=== PATIENT | male | born 1975 | race Caucasian/White ===

== ENCOUNTER 2019-03-26 13:15 | Emergency (ER) | payer OTHER ==
[~2019-03-26] VITALS: Ht 182.9 cm; Wt 93.4 kg
[2019-03-26] MEDS ORDERED: NEURONTIN800 MG PO (13:24)
[2019-03-26] MEDS ORDERED: PLAQUENIL200 MG PO (13:24)
[2019-03-26] MEDS ORDERED: ABILIFY2 MG PO (13:25)
[2019-03-26] MEDS ORDERED: ZOLOFT100 MG PO (13:25)
[2019-03-26] MEDS ORDERED: OXYCODONE HCL5 MG PO (13:26)
[2019-03-26] MEDS ORDERED: KLONOPIN0.5 MG PO (13:26)
[2019-03-26] MEDS ORDERED: VICTOZA 2-0.6 MG/0.1 SUB-Q (13:27)
[2019-03-26] MEDS ORDERED: NOVOLOG FL100 UNIT/1 SUB-Q (13:27)
[2019-03-26] MEDS ORDERED: KAPSPARGO SPRI200 MG PO (13:43)
[2019-03-26] MEDS ORDERED: METOPROLOL SUC200 MG PO (13:44)
[2019-03-26] MEDS ORDERED: MEDROL4 M1 PO (13:55)
--- OUTSIDE RECORDS SUMMARY | 2019-03-26 14:30 | XMS ---
PreManage Notification: HALEY SHEPPARD Security Corrective Therapy Aide Events No recent Security Events currently on file CRITERIA MET - [facility] CARE PROVIDERS EMELI HUMPHREY Primary Care Current PHONE: Unknown Joie has no Care Guidelines for this patient. EJade VISIT COUNT (12 MO.) [facility] [address] [facility] [address] [facility] TOTAL 4 NOTE: Visits indicate total known visits. ED/UCC VISIT TRACKING (12 MO.) 03/26/2019 13:17 YIN Bruner TYPE: Emergency COMPLAINT: - PRESSURE IN LEFT EYE 01/24/2019 16:47 [facility] DIAGNOSES: 0. R KNEE SWELLING SP SURGERY 12/25/2018 19:47 [facility] DIAGNOSES: 0. POST OP SENT BY 11/28/2018 12:36 [facility] DIAGNOSES: 0. SURGERY SIGHT HAS BLISTERS AND PRESSURE INPATIENT VISIT TRACKING (12 MO.) 01/19/2019 21:36 [facility] DIAGNOSES: 0. SEVERE SEPSIS WITHOUT SEPTIC SHOCK, PROBABLE RIGHT [email or web address]
== END 2019-03-26 14:21 | disposition home or self-care (01) ==
LOC: ED 13:15
DX: H57.12 Ocular pain, left eye (principal); M32.9 Systemic lupus erythematosus, unspecified; E11.9 Type 2 diabetes mellitus without complications; F17.200 Nicotine dependence, unspecified, uncomplicated; Z88.8 Allergy status to other drugs, medicaments and biological substances; Z79.899 Other long term (current) drug therapy; Z79.4 Long term (current) use of insulin; Z79.891 Long term (current) use of opiate analgesic
CPT/HCPCS: 99283

== ENCOUNTER 2019-04-07 13:35 | Emergency (ER) | payer OTHER ==
[~2019-04-07] VITALS: Ht 182.9 cm; Wt 93.4 kg
[~2019-04-07 13:35] MED LIST: ABILIFY2 MG PO; KAPSPARGO SPRI200 MG PO; KLONOPIN0.5 MG PO; MEDROL4 M1 PO; METOPROLOL SUC200 MG PO; NEURONTIN800 MG PO; NOVOLOG FL100 UNIT/1 SUB-Q; OXYCODONE HCL5 MG PO; PLAQUENIL200 MG PO; VICTOZA 2-0.6 MG/0.1 SUB-Q; ZOLOFT100 MG PO
--- OUTSIDE RECORDS SUMMARY | 2019-04-07 13:40 | XMS ---
PreManage Notification: HALEY SHEPPARD Security Gem Stone Cutter Events No recent Security Events currently on file CRITERIA MET - [facility] - 2 Visits in 30 Days CARE PROVIDERS EMELI HUMPHREY Primary Care Current PHONE: Unknown Joie has no Care Guidelines for this patient. E.Jonny VISIT COUNT (12 MO.) [facility] Omayra D[address]az[address] TOTAL 5 NOTE: Visits indicate total known visits. 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 O[facility] Pollack TYPE: Emergency DIAGNOSES: 0. R KNEE SWELLING SP SURGERY 12/25/2018 19:47 [facility] DIAGNOSES: 0. POST OP SENT BY 11/28/2018 12:36 [facility] DIAGNOSES: 0. SURGERY SIGHT HAS BLISTERS AND PRESSURE INPATIENT VISIT TRACKING (12 MO.) 01/19/2019 21:36 [facility] DIAGNOSES: 0. SEVERE SEPSIS WITHOUT SEPTIC SHOCK, PROBABLE RIGHT [id number]
[2019-04-07] MEDS ORDERED: NICORETTE2 M1 BUCCAL (16:21)
== END 2019-04-07 16:31 | disposition home or self-care (01) ==
LOC: ED 13:35
DX: S83.91XA Sprain of unspecified site of right knee, initial encounter (principal); X50.9XXA Other and unspecified overexertion or strenuous movements or postures, initial encounter; E11.9 Type 2 diabetes mellitus without complications; F17.200 Nicotine dependence, unspecified, uncomplicated; Z88.8 Allergy status to other drugs, medicaments and biological substances; Z79.899 Other long term (current) drug therapy; Z79.4 Long term (current) use of insulin
CPT/HCPCS: 73560; 99283-25; 99406; A9270

== ENCOUNTER 2019-08-01 10:37 | Emergency (ER) | payer OTHER ==
[~2019-08-01] VITALS: Ht 182.9 cm; Wt 95.2 kg
[~2019-08-01 10:37] MED LIST changes: +NICORETTE2 M1 BUCCAL
--- OUTSIDE RECORDS SUMMARY | 2019-08-01 10:40 | XMS ---
PreManage Notification: HALEY SHEPPARD Security C 40A Crew Chief Events No recent Security Events currently on file CRITERIA MET - [facility] CARE PROVIDERS EMELI HUMPHREY Primary Care Current PHONE: Unknown Joie has no Care Guidelines for this patient. EJade VISIT COUNT ([address] [facility] [address] TOTAL 6 NOTE: Visits indicate total known visits. ED/UCC VISIT TRACKING (12 MO.) 08/01/2019 10:38 [facility] [place] TYPE: Emergency COMPLAINT: - THUMB INJURY 04/07/2019 13:37 [facility] [place] TYPE: Emergency COMPLAINT: - KNEE PAIN, INJ DIAGNOSES: - Other termite control technician (current) drug therapy - Nicotine dependence, unspecified, uncomplicated - Type 2 diabetes mellitus without complications - Allergy status to other drugs, medicaments and biological sub - Sprain of unspecified site of right knee, initial encounter - care home (current) use of insulin - Other and unspecified overexertion or strenuous movements or 03/26/2019 13:17 [facility] [place] TYPE: Emergency COMPLAINT: - PRESSURE IN LEFT EYE DIAGNOSES: - terminal system operator (current) use of opiate analgesic - Systemic lupus erythematosus, unspecified - Other termite control technician (current) drug therapy - Type 2 diabetes mellitus without complications - Ocular pain, left eye - Allergy status to other drugs, medicaments and biological sub - care home (current) use of insulin - Nicotine dependence, unspecified, uncomplicated 01/24/2019 16:47 [facility] TYPE: Emergency DIAGNOSES: 0. R KNEE SWELLING SP SURGERY 12/25/2018 19:47 [facility] DIAGNOSES: 0. POST OP SENT BY 11/28/2018 12:36 [facility] DIAGNOSES: 0. SURGERY SIGHT HAS BLISTERS AND PRESSURE INPATIENT VISIT TRACKING (12 MO.) 01/19/2019 21:36 [facility] OR MimiMargaret TYPE: [facility] DIAGNOSES: 0. SEVERE SEPSIS WITHOUT SEPTIC SHOCK, PROBABLE RIGHT [id number]
[2019-08-01] MEDS ORDERED: NORCO 7.5-3251 EACH PO (12:15)
[2019-08-01] MEDS ORDERED: KEFLEX500 MG PO (12:15)
== END 2019-08-01 12:25 | disposition home or self-care (01) ==
LOC: ED 10:37
DX: S61.132A Puncture wound without foreign body of left thumb with damage to nail, initial encounter (principal); E11.9 Type 2 diabetes mellitus without complications; F17.200 Nicotine dependence, unspecified, uncomplicated; Z79.899 Other long term (current) drug therapy; X58.XXXA Exposure to other specified factors, initial encounter
CPT/HCPCS: 73140; 99283-25; A9270

== ENCOUNTER 2019-09-23 09:53 | Emergency (ER) | payer OTHER ==
[~2019-09-23] VITALS: Ht 182.9 cm; Wt 102.3 kg
--- OUTSIDE RECORDS SUMMARY | ~2019-09-23 | XMS | Clinical Summary ---
Demographics + + + | Address | [address] | | | [place] [address] | + + + | Home Phone | | + + + | Preferred Language | Unknown | + + + | Marital Status | Unknown | + + + | Voodoo Affiliation | Unknown | + + + | Race | Unknown | + + + | Ethnic Group | Unknown | + + + Author + + + | Author | [facility] | | | and [place] | + + + | Organization | [facility] | | | and [place] | + + + | Address | Unknown | + + + | Phone | Unavailable | + + + Care Team Providers + +------+ + | Care Ambulance Driver Name | Role | Phone | + +------+ + | Jesica Wesley PA-C PCP | | + +------+ + Allergies No Known Allergies Medications + + + +---------+------+------+-------+ | Medication | Sig | Dispensed | Refills | Star | End | Statu | | | | | | t | Date | s | | | | | | Date | | | + + + +---------+------+------+-------+ | gabapentin | Take 800 mg by mouth | | 0 | | | Activ | | (NEURONTIN) 800 MG | 3 times daily. | | | | | e | | tablet | | | | | | | + + + +---------+------+------+-------+ | liraglutide | Inject 1.2 mg under | | 0 | | | Activ | | (VICTOZA) 18 mg/3 mL | the skin Daily. | | | | | e | | injection | | | | | | | + + + +---------+------+------+-------+ | insulin aspart | Inject under the | | 0 | | | Activ | | (NOVOLOG FLEXPEN) | skin 3 times daily | | | | | e | | 100 units/mL | (before meals). | | | | | | | injection pen | | | | | | | + + + +---------+------+------+-------+ | insulin glargine | Inject under the | | 0 | | | Activ | | (BASAGLAR KWIKPEN) | skin nightly. | | | | | e | | 100 units/mL | | | | | | | | injection (pen) | | | | | | | + + + +---------+------+------+-------+ | metoprolol | Take 200 mg by mouth | | 0 | | | Activ | | succinate | Daily. | | | | | e | | (TOPROL-XL) 200 mg | | | | | | | | ER tablet | | | | | | | + + + +---------+------+------+-------+ | sertraline | Take 100 mg by mouth | | 0 | | | Activ | | (ZOLOFT) 100 mg | 2 times daily. | | | | | e | | tablet | | | | | | | + + + +---------+------+------+-------+ | ALPRAZolam (XANAX) | Take 1 mg by mouth 2 | | 0 | | | Activ | | 1 MG tablet | times daily. | | | | | e | + + + +---------+------+------+-------+ | doxepin (SINEQUAN) | Take 150 mg by mouth | | 0 | | | Activ | | 150 MG capsule | nightly. | | | | | e | + + + +---------+------+------+-------+ | ARIPiprazole | Take 2 mg by mouth | | 0 | | | Activ | | (ABILIFY) 2 mg | Daily. | | | | | e | | tablet | | | | | | | + + + +---------+------+------+-------+ Active Problems Not on file Encounters +--------+ + + + + | Date | Type | Specialty | Care Team | Description | +--------+ + + + + | 08/30/ | Orders Only | Nephrology | Marquez, | Chronic kidney | | 2019 | | | [facility] [place] | disease, stage III | | | | | | (moderate) (HCC) | | | | | | (Primary Dx) | +--------+ + + + + | 08/16/ | Abstract | Nephrology | Larry, | | | 2019 | | | MD Darren | | +--------+ + + + + | 08/11/ | Abstract | Nephrology | Larry, | | | 2019 | | | MD Darren | | +--------+ + + + + | 08/10/ | Abstract | Nephrology | Marquez, | | | 2020 | | | [place] | | +--------+ + + + + from Last 3 Months Family History + + +------+ + | Medical History | Relation | Name | Comments | + + +------+ + | Diabetes | Father | | | + + +------+ + | Schizophrenia | Sister | | | + + +------+ + | Ulcerative colitis | Sister | | | + + +------+ + + +------+ + + | Relation | Name | Status | Comments | + +------+ + + | Father | | | | + +------+ + + | Maternal Grandfather | | | | + +------+ + + | Maternal Grandmother | | Alive | | + +------+ + + | Mother | | Alive | | + +------+ + + | Paternal Grandfather | | | | + +------+ + + | Paternal Grandmother | | Alive | | + +------+ + + | Sister | | Alive | | + +------+ + + Social History + +-------+ +--------+------+ | Tobacco Use | Types | Packs/Day | Years | Date | | | | | Used | | + +-------+ +--------+------+ | Never Assessed | | | | | + +-------+ +--------+------+ + + +---------+ + | Alcohol Use | Drinks/Week | oz/Week | Comments | + + +---------+ + | Not Currently | | | | + + +---------+ + + + + | Sex Assigned at | Date Recorded | | | | + + + | Not on file | | + + + + + + + | Job Start Date | Occupation | Industry | + + + + | Not on file | Not on file | Not on file | + + + + + + + + | Travel History | Travel Start | Travel End | + + + + + + | No recent travel history available. | + + Last Filed Vital Signs Not on file Plan of Treatment +--------+---------+ + + + | Date | Type | Specialty | Care Team | Description | +--------+---------+ + + + | 12/04/ | Office | Nephrology | Marquez, | | | 2020 | Visit | | [facility] [place] [address] | | | | | | [address] [facility] | | | | | | [address] | | | | | | [address] | | | | | | | | +--------+---------+ + + + + + + + + | Health Maintenance | Due Date | Last Done | Comments | + + + + + | Vaccine: | | | | | Dtap/Tdap/Td (1 - | 6 | | | | Tdap) | | | | + + + + + | Vaccine: Influenza | | | | | (Season Ended) | 0 | | | + + + + + Procedures + +--------+ + + + | Procedure Name | Priori | Date/Time | Associated Diagnosis | Comments | | | ty | | | | + +--------+ + + + | HEMOGLOBIN A1C | Routin | 08/02/2019 | | Results for this | | | e | | | procedure are in the | | | | | | results section. | + +--------+ + + + | EXTERNAL LAB: BUN | Routin | 08/02/2019 | | Results for this | | | e | | | procedure are in the | | | | | | results section. | + +--------+ + + + | EXTERNAL LAB: | Routin | 08/02/2019 | | Results for this | | GLUCOSE | e | | | procedure are in the | | | | | | results section. | + +--------+ + + + | EXTERNAL LAB: ALT | Routin | 08/02/2019 | | Results for this | | | e | | | procedure are in the | | | | | | results section. | + +--------+ + + + | EXTERNAL LAB: AST | Routin | 08/02/2019 | | Results for this | | | e | | | procedure are in the | | | | | | results section. | + +--------+ + + + | EXTERNAL LAB: | Routin | 08/02/2019 | | Results for this | | ALKALINE PHOSPHATASE | e | | | procedure are in the | | | | | | results section. | + +--------+ + + + | EXTERNAL LAB: | Routin | 08/02/2019 | | Results for this | | BILIRUBIN, TOTAL | e | | | procedure are in the | | | | | | results section. | + +--------+ + + + | EXTERNAL LAB: | Routin | 08/02/2019 | | Results for this | | ALBUMIN | e | | | procedure are in the | | | | | | results section. | + +--------+ + + + | EXTERNAL LAB: | Routin | 08/02/2019 | | Results for this | | PROTEIN, TOTAL | e | | | procedure are in the | | | | | | results section. | + +--------+ + + + | EXTERNAL LAB: | Routin | 08/02/2019 | | Results for this | | CALCIUM | e | | | procedure are in the | | | | | | results section. | + +--------+ + + + | EXTERNAL LAB: CARBON | Routin | 08/02/2019 | | Results for this | | DIOXIDE | e | | | procedure are in the | | | | | | results section. | + +--------+ + + + | EXTERNAL LAB: | Routin | 08/02/2019 | | Results for this | | CHLORIDE | e | | | procedure are in the | | | | | | results section. | + +--------+ + + + | EXTERNAL LAB: | Routin | 08/02/2019 | | Results for this | | POTASSIUM | e | | | procedure are in the | | | | | | results section. | + +--------+ + + + | EXTERNAL LAB: SODIUM | Routin | 08/02/2019 | | Results for this | | | e | | | procedure are in the | | | | | | results section. | + +--------+ + + + | EXTERNAL LAB: | Routin | 08/02/2019 | | Results for this | | URINALYSIS | e | | | procedure are in the | | | | | | results section. | + +--------+ + + + | EXTERNAL LAB: CBC | Routin | 08/02/2019 | | Results for this | | | e | | | procedure are in the | | | | | | results section. | + +--------+ + + + | EXTERNAL LAB: EGFR | Routin | 08/02/2019 | | Results for this | | | e | | | procedure are in the | | | | | | results section. | + +--------+ + + + | EXTERNAL LAB: | Routin | 08/02/2019 | | Results for this | | CREATININE | e | | | procedure are in the | | | | | | results section. | + +--------+ + + + from Last 3 Months Results External Lab: BUN (08/02/2019) + +-------+ + + + | Component | Value | Ref Range | Performed | Pathologist | | | | | At | Signature | + +-------+ + + + | BUN, | 16 | | EXTERNAL | | | External | | | LAB | | + +-------+ + + + + +---------+ + + | Performing | Address | City/State/Zipcode | Phone Number | | Organization | | | | + +---------+ + + | EXTERNAL LAB | | | | + +---------+ + + External Lab: Glucose (08/02/2019) + +-------+ + + + | Component | Value | Ref Range | Performed | Pathologist | | | | | At | Signature | + +-------+ + + + | Glucose, | 344 | | EXTERNAL | | | External | | | LAB | | + +-------+ + + + + +---------+ + + | Performing | Address | City/State/Zipcode | Phone Number | | Organization | | | | + +---------+ + + | EXTERNAL LAB | | | | + +---------+ + + External Lab: ALT (08/02/2019) + +-------+ + + + | Component | Value | Ref Range | Performed | Pathologist | | | | | At | Signature | + +-------+ + + + | ALT, | 17 | | EXTERNAL | | | External | | | LAB | | + +-------+ + + + + +---------+ + + | Performing | Address | City/State/Zipcode | Phone Number | | Organization | | | | + +---------+ + + | EXTERNAL LAB | | | | + +---------+ + + External Lab: AST (08/02/2019) + +-------+ + + + | Component | Value | Ref Range | Performed | Pathologist | | | | | At | Signature | + +-------+ + + + | AST, | 19 | | EXTERNAL | | | External | | | LAB | | + +-------+ + + + + +---------+ + + | Performing | Address | City/State/Zipcode | Phone Number | | Organization | | | | + +---------+ + + | EXTERNAL LAB | | | | + +---------+ + + External Lab: Alkaline Phosphatase (08/02/2019) + +-------+ + + + | Component | Value | Ref Range | Performed | Pathologist | | | | | At | Signature | + +-------+ + + + | ALP, | 78 | | EXTERNAL | | | External | | | LAB | | + +-------+ + + + + +---------+ + + | Performing | Address | City/State/Zipcode | Phone Number | | Organization | | | | + +---------+ + + | EXTERNAL LAB | | | | + +---------+ + + External Lab: Bilirubin, Total (08/02/2019) + +-------+ + + + | Component | Value | Ref Range | Performed | Pathologist | | | | | At | Signature | + +-------+ + + + | Bilirubin, | 1.2 | | EXTERNAL | | | Total, | | | LAB | | | External | | | | | + +-------+ + + + + +---------+ + + | Performing | Address | City/State/Zipcode | Phone Number | | Organization | | | | + +---------+ + + | EXTERNAL LAB | | | | + +---------+ + + External Lab: Albumin (08/02/2019) + +-------+ + + + | Component | Value | Ref Range | Performed | Pathologist | | | | | At | Signature | + +-------+ + + + | Albumin, | 4.5. | | EXTERNAL | | | External | | | LAB | | + +-------+ + + + + +---------+ + + | Performing | Address | City/State/Zipcode | Phone Number | | Organization | | | | + +---------+ + + | EXTERNAL LAB | | | | + +---------+ + + External Lab: Protein, Total (08/02/2019) + +-------+ + + + | Component | Value | Ref Range | Performed | Pathologist | | | | | At | Signature | + +-------+ + + + | Protein, | 7.2 | | EXTERNAL | | | Total, | | | LAB | | | External | | | | | + +-------+ + + + + +---------+ + + | Performing | Address | City/State/Zipcode | Phone Number | | Organization | | | | + +---------+ + + | EXTERNAL LAB | | | | + +---------+ + + External Lab: Calcium (08/02/2019) + +-------+ + + + | Component | Value | Ref Range | Performed | Pathologist | | | | | At | Signature | + +-------+ + + + | Calcium, | 9.6 | | EXTERNAL | | | External | | | LAB | | + +-------+ + + + + +---------+ + + | Performing | Address | City/State/Zipcode | Phone Number | | Organization | | | | + +---------+ + + | EXTERNAL LAB | | | | + +---------+ + + External Lab: Carbon Dioxide (08/02/2019) + +-------+ + + + | Component | Value | Ref Range | Performed | Pathologist | | | | | At | Signature | + +-------+ + + + | Carbon | 24 | | EXTERNAL | | | Dioxide, | | | LAB | | | External | | | | | + +-------+ + + + + +---------+ + + | Performing | Address | City/State/Zipcode | Phone Number | | Organization | | | | + +---------+ + + | EXTERNAL LAB | | | | + +---------+ + + External Lab: Chloride (08/02/2019) + +-------+ + + + | Component | Value | Ref Range | Performed | Pathologist | | | | | At | Signature | + +-------+ + + + | Chloride, | 101 | | EXTERNAL | | | External | | | LAB | | + +-------+ + + + + +---------+ + + | Performing | Address | City/State/Zipcode | Phone Number | | Organization | | | | + +---------+ + + | EXTERNAL LAB | | | | + +---------+ + + External Lab: Potassium (08/02/2019) + +-------+ + + + | Component | Value | Ref Range | Performed | Pathologist | | | | | At | Signature | + +-------+ + + + | Potassium, | 4.5 | | EXTERNAL | | | External | | | LAB | | + +-------+ + + + + +---------+ + + | Performing | Address | City/State/Zipcode | Phone Number | | Organization | | | | + +---------+ + + | EXTERNAL LAB | | | | + +---------+ + + External Lab: Sodium (08/02/2019) + +-------+ + + + | Component | Value | Ref Range | Performed | Pathologist | | | | | At | Signature | + +-------+ + + + | Sodium, | 137 | | EXTERNAL | | | External | | | LAB | | + +-------+ + + + + +---------+ + + | Performing | Address | City/State/Zipcode | Phone Number | | Organization | | | | + +---------+ + + | EXTERNAL LAB | | | | + +---------+ + + External Lab: Urinalysis (08/02/2019) + + + + + + | Component | Value | Ref Range | Performed | Pathologist | | | | | At | Signature | + + + + + + | UA Blood, | negative | | EXTERNAL | | | External | | | LAB | | + + + + + + | UA Glucose, | large | | EXTERNAL | | | External | | | LAB | | + + + + + + | UA Ketones, | negative | | EXTERNAL | | | External | | | LAB | | + + + + + + | UA Ph, | 7 | | EXTERNAL | | | External | | | LAB | | + + + + + + | UA | negative | | EXTERNAL | | | Proteins, | | | LAB | | | External | | | | | + + + + + + | UA RBC, | 2 | | EXTERNAL | | | External | | | LAB | | + + + + + + | UA Specific | 1.027 | | EXTERNAL | | | [place], | | | LAB | | | External | | | | | + + + + + + | UA | negaitve | | EXTERNAL | | | Leukocyte | | | LAB | | | Esterase, | | | | | | External | | | | | + + + + + + + +---------+ + + | Performing | Address | City/State/Zipcode | Phone Number | | Organization | | | | + +---------+ + + | EXTERNAL LAB | | | | + +---------+ + + External Lab: CBC (08/02/2019) + +-------+ + + + | Component | Value | Ref Range | Performed | Pathologist | | | | | At | Signature | + +-------+ + + + | WBC, | 6.5 | | EXTERNAL | | | External | | | LAB | | + +-------+ + + + | HGB, | 15.3 | | EXTERNAL | | | External | | | LAB | | + +-------+ + + + | HCT, | 45.8 | | EXTERNAL | | | External | | | LAB | | + +-------+ + + + | PLT, | 311 | | EXTERNAL | | | External | | | LAB | | + +-------+ + + + | RBC, | 4.94 | | EXTERNAL | | | External | | | LAB | | + +-------+ + + + | MCV, | 93 | | EXTERNAL | | | External | | | LAB | | + +-------+ + + + | RDW, | 13.4 | | EXTERNAL | | | External | | | LAB | | + +-------+ + + + + +---------+ + + | Performing | Address | City/State/Zipcode | Phone Number | | Organization | | | | + +---------+ + + | EXTERNAL LAB | | | | + +---------+ + + External Lab: eGFR (08/02/2019) + +-------+ + + + | Component | Value | Ref Range | Performed | Pathologist | | | | | At | Signature | + +-------+ + + + | eGFR, | 83 | | EXTERNAL | | | External | | | LAB | | + +-------+ + + + + + | Specimen | + + | Blood | + + + +---------+ + + | Performing | Address | City/State/Zipcode | Phone Number | | Organization | | | | + +---------+ + + | EXTERNAL LAB | | | | + +---------+ + + External Lab: Creatinine (08/02/2019) + +-------+ + + + | Component | Value | Ref Range | Performed | Pathologist | | | | | At | Signature | + +-------+ + + + | Creatinine, | 0.98 | | EXTERNAL | | | External | | | LAB | | + +-------+ + + + + + | Specimen | + + | Blood | + + + +---------+ + + | Performing | Address | City/State/Zipcode | Phone Number | | Organization | | | | + +---------+ + + | EXTERNAL LAB | | | | + +---------+ + + Hemoglobin A1C (08/02/2019) + +-------+ + + + | Component | Value | Ref Range | Performed | Pathologist | | | | | At | Signature | + +-------+ + + + | Hemoglobin | 8.8 | % | EXTERNAL | | | A1c | | | LAB | | + +-------+ + + + + + | Specimen | + + | Blood | + + + +---------+ + + | Performing | Address | City/State/Zipcode | Phone Number | | Organization | | | | + +---------+ + + | EXTERNAL LAB | | | | + +---------+ + + from Last 3 Months Insurance + +--------+ +--------+ +---------+--------+ | Payer | Benefi | Subscriber | Effect | Phone | Address | Type | | | t Plan | ID | anisa | | | | | | / | | Dates | | | | | | Group | | | | | | + +--------+ +--------+ +---------+--------+ | [employer] | [employer] | [id number] | 08/10/19 | [phone] | | Medica | | MEDICAID HMO | HEALTH | | 20-Pre | 1 | | id | | | MDCD | | sent | | | | | | [place] | | | | | | + +--------+ +--------+ +---------+--------+ | [employer] | [employer] | [id number] | 08/18/19 | [phone] | | Medica | | MEDICAID HMO | HEALTH | | 20-Pre | 1 | | id | | | MDCD | | sent | | | | | | [place] | | | | | | + +--------+ +--------+ +---------+--------+ + +--------+ +--------+ + + | Guarantor Name | Accoun | Relation to | Date | Phone | Billing Address | | | t Type | Patient | of | | | | | | | | | | + +--------+ +--------+ + + | Grady Smiley | Person | Self [birth year] | [address] | | | al/Fam | | 1975 | [phone] | [place] [address] | | | susana | | | 3 (Home) | | | | | | | [phone] | | | | | | | 8 (Work) | | + +--------+ +--------+ + + | Grady Smiley | Person | Self [birth year] | [address] | | | al/Fam | | 1975 | [phone] | [place] [address] | | | susana | | | 3 (Home) | | | | | | | [phone] | | | | | | | 8 (Work) | | + +--------+ +--------+ + + Advance Directives + + + + + | Type | Date Recorded | Patient | Explanation | | | | Residential Program Manager | | + + + + + | Power of | | | | | 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
--- OUTSIDE RECORDS SUMMARY | ~2019-09-23 | XMS | Encounter Summary ---
Demographics + + + | Address | [address] | | | [place] [address] | + + + | Home Phone | | + + + | Preferred Language | Unknown | + + + | Marital Status | Unknown | + + + | Jew Affiliation | Unknown | + + + | Race | Unknown | + + + | Ethnic Group | Unknown | + + + Author + + + | Author | [facility] | | | and [place] | + + + | Organization | [facility] | | | and [place] | + + + | Address | Unknown | + + + | Phone | Unavailable | + + + Care Team Providers + +------+ + | Care Pay Agent Name | Role | Phone | + +------+ + | Jesica Wesley PA-C PCP | | + +------+ + Encounter Details +--------+ + + + + | Date | Type | Department | Care Team | Description | +--------+ + + + + | 08/10/ | Abstract | [facility] | [place], | | | 2020 | | NEPHROLOGY [address] | [facility] [place] [address] | | | | | [address] | [address], [place] | | | | | [place], [place] | [address] [place] | | | | | [phone] | [address] | | | | | [phone] | | | +--------+ + + + + Social History + +-------+ +--------+------+ | Tobacco Use | Types | Packs/Day | Years | Date | | | | | Used | | + +-------+ +--------+------+ | Never Assessed | | | | | + +-------+ +--------+------+ + + + | Sex Assigned at [...] recent travel history available. | + + documented as of this encounter Plan of Treatment +--------+---------+ + + + | Date | Type | Specialty | Care Team | Description | +--------+---------+ + + + | 12/04/ | Office | Nephrology | Marquez, | | | 2019 | Visit | | [facility] [place] [address] | | | | | | [address] [place] | | | | | | [address] | | | | | | [address] | | | | | | | | +--------+---------+ + + + documented as of this encounter Visit Diagnoses Not on filedocumented in this encounter"
--- OUTSIDE RECORDS SUMMARY | ~2019-09-23 | XMS | Encounter Summary ---
Demographics + + + | Address | [address] | | | [place] [address] | + + + | Home Phone | | + + + | Preferred Language | Unknown | + + + | Marital Status | Unknown | + + + | Gnosticist Affiliation | Unknown | + + + | Race | Unknown | + + + | Ethnic Group | Unknown | + + + Author + + + | Author | [facility] | | | and [place] | + + + | Organization | [facility] | | | and [place] | + + + | Address | Unknown | + + + | Phone | Unavailable | + + + Care Team Providers + +------+ + | Care Customer Care Assistant Name | Role | Phone | + +------+ + | Jesica Wesley PA-C PCP | | + +------+ + Encounter Details +--------+ + + + + | Date | Type | Department | Care Team | Description | +--------+ + + + + | 08/30/ | Orders Only | [facility] [place] | [place], | Chronic kidney | | 2020 | | NEPHROLOGY [address] | [address] [place] [address] | disease, stage III | | | | [address] | [address], [place] | (moderate) (HCC) | | | | [place] | [address] | (Primary Dx) | | | | [address] | [address] | | | | | [phone] | | | +--------+ + + + [...] + + documented as of this encounter Progress Nga Ashton RN - 08/31/2019 2:11 PM [facility] for upcoming nephrology appointment sent to: Needs to be sent to [facility] 09/12/19 docu mented in this encounter Plan of Treatment +--------+---------+ + + + | Date | Type | Specialty | Care Team | Description | +--------+---------+ + + + | 12/04/ | Office | Nephrology | [facility], | | | 2019 | Visit | | [facility] [place] [address] | | | | | | [address], [facility] | | | | | | [address] [place] [place] | | | | | | [address] | | | | | | | | +--------+---------+ + + + + +---------+--------+ + + | Name | Type | Priori | Associated Diagnoses | Order Schedule | | | | ty | | | + +---------+--------+ + + | Renal Function Panel | Lab | Routin | Chronic kidney | Expected: | | | | e | disease, stage III | 11/28/2019, Expires: | | | | | (moderate) ([facility]) | 08/30/2020 | + +---------+--------+ + + | Parathyroid Hormone, | Lab | Routin | Chronic kidney | Expected: | | Intact | | e | disease, stage III | 11/28/2019, Expires: | | | | | (moderate) ([facility]) | 08/30/2020 | + +---------+--------+ + + | Vitamin D, | Lab | Routin | Chronic kidney | Expected: | | Deficiency Screen | | e | disease, stage III | 11/28/2019, Expires: | | (25-Hydroxy) | | | (moderate) ([facility]) | 08/30/2020 | + +---------+--------+ + + | Protein/Creatinine | Lab | Routin | Chronic kidney | Expected: | | Ratio, Urine | | e | disease, stage III | 11/28/2019, Expires: | | | | | (moderate) ([facility]) | 08/30/2020 | + +---------+--------+ + + | Urinalysis With | Lab | Routin | Chronic kidney | Expected: | | Microscopic | | e | disease, stage III | 11/28/2019, Expires: | | | | | (moderate) ([facility]) | 08/30/2020 | + +---------+--------+ + + | CBC with | Lab | Routin | Chronic kidney | Expected: | | Differential | | e | disease, stage III | 11/28/2019, Expires: | | | | | (moderate) ([facility]) | 08/30/2020 | + +---------+--------+ + + | US Renal Complete | Imaging | Routin | Chronic kidney | Expected: | | | | e | disease, stage III | 08/31/2019, Expires: | | | | | (moderate) ([facility]) | 08/30/2020 | + +---------+--------+ + + documented as of this encounter Visit Diagnoses + + | Diagnosis | + + | Chronic kidney disease, stage III (moderate) (HCC) - Primary Chronic kidney disease, | | Stage III (moderate) | + + documented in this encounter"
--- OUTSIDE RECORDS SUMMARY | ~2019-09-23 | XMS | Encounter Summary ---
Demographics + + + | Address | [address] | | | [place] [address] | + + + | Home Phone | | + + + | Preferred Language | Unknown | + + + | Marital Status | Unknown | + + + | Rastafari Affiliation | Unknown | + + + | Race | Unknown | + + + | Ethnic Group | Unknown | + + + Author + + + | Author | [facility] | | | and [place] | + + + | Organization | [facility] | | | and [place] | + + + | Address | Unknown | + + + | Phone | Unavailable | + + + Care Team Providers + +------+ + | Care [place] Name | Role | Phone | + [...] | [address] | [address], [place] | (moderate) (HCC) | | | | [place] | [address] | (Primary Dx) | | | | [address] | [address] | | | | | [phone] | | | +--------+ + + + [...] to: Needs to be sent to [facility] 09/12/19 docu mented in this encounter Plan of Treatment +--------+---------+ + + + | Date | Type | Specialty | Care Team | Description | +--------+---------+ + + + | 12/04/ | Office | Nephrology | [facility], | | | 2019 | Visit | | [address]AN[address] | | | | | | [address], [facility] | | | | | | [address] [place] | | | | | | [address] | | | | | | | [...] Expires: | | | | | (moderate) ([facility]) | 08/30/2020 | + +---------+--------+ + + | Parathyroid Hormone, | Lab | Routin | Chronic kidney | Expected: | | Intact | | e | disease, stage III | 11/28/2019, Expires: | | | | | (moderate) ([facility]) | 08/30/2020 | + +---------+--------+ + + | Vitamin D, | Lab | Routin | Chronic kidney | Expected: | | Deficiency Screen | | e | disease, stage III | 11/28/2019, Expires: | | (25-Hydroxy) | | | (moderate) ([facility]) | 08/30/2020 | + +---------+--------+ + + | Protein/Creatinine | Lab | Routin | Chronic kidney | Expected: | | Ratio, Urine | | e | disease, stage III | 11/28/2019, Expires: | | | | | (moderate) ([facility]) | 08/30/2020 | + +---------+--------+ + + | Urinalysis With | Lab | Routin | Chronic kidney | Expected: | | Microscopic | | e | disease, stage III | 11/28/2019, Expires: | | | | | (moderate) ([facility]) | 08/30/2020 | + +---------+--------+ + + | CBC with | Lab | Routin | Chronic kidney | Expected: | | Differential | | e | disease, stage III | 11/28/2019, Expires: | | | | | (moderate) ([facility]) | 08/30/2020 | + +---------+--------+ + + | US Renal Complete | Imaging | Routin | Chronic kidney | Expected: | | | | e | disease, stage III | 08/31/2019, Expires: | | | | | (moderate) ([facility]) | 08/30/2020 | + +---------+--------+ + + documented as of this encounter Visit Diagnoses + + | Diagnosis | + + | Chronic kidney disease, stage III (moderate) (HCC) - Primary Chronic kidney disease, | | Stage III (moderate) | + + documented in this encounter"
--- OUTSIDE RECORDS SUMMARY | ~2019-09-23 | XMS | Encounter Summary ---
Demographics + + + | Address | [address] | | | [place] [address] | + + + | Home Phone | | + + + | Preferred Language | Unknown | + + + | Marital Status | Unknown | + + + | Sikh Affiliation | Unknown | + + + | Race | Unknown | + + + | Ethnic Group | Unknown | + + + Author + + + | Author | [facility] | | | and [place] | + + + | Organization | [facility] | | | and [place] | + + + | Address | Unknown | + + + | Phone | Unavailable | + + + Care Team Providers + +------+ + | Care Nursing Surgical Services Director Name | Role | Phone | + +------+ + | Jesica Wesley PA-C PCP | | + +------+ + Encounter Details +--------+ + + + + | Date | Type | Department | Care Team | Description | +--------+ + + + + | 08/11/ | Abstract | [facility] | Provider, | | | 2020 | | NEPHROLOGY [address] | [address] | | | | | [place] [facility] [address] | [address] | | | | | [place] | [facility] [place] [address] | | | | | [address] | | | | | | [phone] | | | +--------+ + + + [...] | 12/04/ | Office | Nephrology | [place], | | | 2020 | Visit | | [address] | | | | | | [address] [place] | | | | | | [address] | | | | | | [address] | | | | | | | | +--------+---------+ + + + documented as of this encounter Procedures + +--------+ + + + | Procedure Name | Priori | Date/Time | Associated Diagnosis | Comments | | | ty | | | | + +--------+ + + + | EXTERNAL LAB: [facility] | Routin | 08/02/2019 | | Results [...] section. | + +--------+ + + + documented in this encounter Results Hemoglobin A1C (08/02/2019) + +-------+ + + [...] | + +---------+ + + External Lab: BUN (08/02/2019) + +-------+ + [...] 1.027 | | EXTERNAL | | | [place], | | | LAB | | | [...] | | | + +---------+ + + documented in this encounter Visit Diagnoses Not on filedocumented in this encounter"
--- OUTSIDE RECORDS SUMMARY | ~2019-09-23 | XMS | Encounter Summary ---
Demographics + + + | Address | [address] | | | [place] [address] | + + + | Home Phone | | + + + | Preferred Language | Unknown | + + + | Marital Status | Unknown | + + + | Latter Day Affiliation | Unknown | + + + | Race | Unknown | + + + | Ethnic Group | Unknown | + + + Author + + + | Author | [facility] | | | and [place] | + + + | Organization | [facility] | | | and [place] | + + + | Address | Unknown | + + + | Phone | Unavailable | + + + Care Team Providers + +------+ + | Care Owner Manager Name | Role | Phone | + +------+ + | Jesica Wesley PA-C PCP | | + +------+ + Encounter Details +--------+ + + + + | Date | Type | Department | Care Team | Description | +--------+ + + + + | 08/11/ | Abstract | [facility] | Provider, | | | 2020 | | NEPHROLOGY [address] | [address] | | | | | [facility] [facility] [address] | [address] | | | | | [place] | [place] [address] | | | | | [address] | | | | | | [phone] | | | +--------+ + + + [...] [place] | | | | | | [address] | | | | | | | [...] 1.027 | | EXTERNAL | | | [place], | | | LAB | | | [...]
--- OUTSIDE RECORDS SUMMARY | ~2019-09-23 | XMS | Encounter Summary ---
Demographics + + + | Address | [address] | | | [place] [address] | + + + | Home Phone | | + + + | Preferred Language | Unknown | + + + | Marital Status | Unknown | + + + | Worship Affiliation | Unknown | + + + | Race | Unknown | + + + | Ethnic Group | Unknown | + + + Author + + + | Author | [facility] | | | and [place] | + + + | Organization | [facility] | | | and [place] | + + + | Address | Unknown | + + + | Phone | Unavailable | + + + Care Team Providers + +------+ + | Care Rn Surgery Name | Role | Phone | + [...] | [address] | [address], [place] | | | | | [place], [place] | [address] [place] | | | | | [address] | [address] | | | | | [phone] | | | +--------+ + + + [...] [place] | | | | | | [address] | | | | | | | | +--------+---------+ + + + documented as of this encounter Visit Diagnoses Not on filedocumented in this encounter"
--- OUTSIDE RECORDS SUMMARY | ~2019-09-23 | XMS | Clinical Summary ---
Demographics + + + | Address | [address] | | | [place] [address] | + + + | Home Phone | | + + + | Preferred Language | Unknown | + + + | Marital Status | Unknown | + + + | Judaism Affiliation | Unknown | + + + | Race | Unknown | + + + | Ethnic Group | Unknown | + + + Author + + + | Author | [facility] | | | and [place] | + + + | Organization | [facility] | | | and [place] | + + + | Address | Unknown | + + + | Phone | Unavailable | + + + Care Team Providers + +------+ + | Care Nuclear Scientist Name | Role | Phone | + [...] | | | | | | [address] [facility] | | | | | | [address] | | | | | | [address] | | | | | | | [...] 1.027 | | EXTERNAL | | | [place], | | | LAB | | | [...] | [employer] | MODA | [id number] | 08/10/19 | [phone] | | Medica | | MEDICAID HMO | HEALTH | | 20-Pre | 1 | | id | | | MDCD | | sent | | | | | | [place]MO [place] | | | | | | + +--------+ +--------+ +---------+--------+ | [employer] | MODA | [id number] | 08/18/19 | [phone] | | Medica | | MEDICAID HMO [...] | 1975 | [id number] | [place] [address] | | | susana | | | 3 (Home) | | | | | | | [phone] | | | | | | | 8 (Work) | | + +--------+ +--------+ + + | Grady Smiley | Person | Self | [birth year] | [address] | | | al/Fam | | 1975 | [id number] | [place] [address] | | | susana | | | 3 (Home) | | | | | | | [phone] | | | | | | | 8 (Work) | | + +--------+ +--------+ + + Advance Directives + + + + + | Type | Date Recorded | Patient | Explanation | | | | Labor Relations Specialist | | + + + + + | Power of | | | | | Customer Support Associate | | | | + + + + + | Advance | | | | | Directive | | | | + + + + +"
--- OUTSIDE RECORDS SUMMARY | ~2019-09-23 | XMS | Encounter Summary ---
Demographics + + + | Address | [address] | | | [place] [address] | + + + | Home Phone | | + + + | Preferred Language | Unknown | + + + | Marital Status | Unknown | + + + | Judaism Affiliation | Unknown | + + + | Race | Unknown | + + + | Ethnic Group | Unknown | + + + Author + + + | Author | [facility] | | | and [place] | + + + | Organization | [facility] | | | and [place] | + + + | Address | Unknown | + + + | Phone | Unavailable | + + + Care Team Providers + +------+ + | Care Fairing Worker Name | Role | Phone | + +------+ + | Jesica Wesley PA-C PCP | | + +------+ + Encounter Details +--------+ + + + + | Date | Type | Department | Care Team | Description | +--------+ + + + + | 08/16/ | Abstract | [facility] | Provider, | | | 2020 | | NEPHROLOGY [address] | [address] | | | | | [facility] [address] | [address] | | | | | [place] | [place] [place] [address] | | | | | [address] | | | | | | [phone] | | | +--------+ + + + [...] [place] | | | | | | [address] | | | | | | | | +--------+---------+ + + + documented as of this encounter Visit Diagnoses Not on filedocumented in this encounter"
--- OUTSIDE RECORDS SUMMARY | ~2019-09-23 | XMS | Encounter Summary ---
Demographics + + + | Address | [address] | | | [place] [address] | + + + | Home Phone | | + + + | Preferred Language | Unknown | + + + | Marital Status | Unknown | + + + | Voodoo Affiliation | Unknown | + + + | Race | Unknown | + + + | Ethnic Group | Unknown | + + + Author + + + | Author | [facility] | | | and [place] | + + + | Organization | [facility] | | | and [place] | + + + | Address | Unknown | + + + | Phone | Unavailable | + + + Care Team Providers + +------+ + | Care Taxation Agent Name | Role | Phone | + +------+ + | Jesica Wesley PA-C PCP | | + +------+ + Encounter Details +--------+ + + + + | Date | Type | Department | Care Team | Description | +--------+ + + + + | 08/16/ | Abstract | [facility] | Provider, | | | 2020 | | NEPHROLOGY [address] | [address] | | | | | [place] [facility] [address] | [address] | | | | | [place] | [facility] [place] [address] | | | | | [address] | | | | | | [phone] | | | +--------+ + + + [...] [place] | | | | | | [address] | | | | | | | | +--------+---------+ + + + documented as of this encounter Visit Diagnoses Not on filedocumented in this encounter"
[~2019-09-23 09:53] MED LIST changes: +BASAGLAR K100 UNIT/1 SUB-Q; +CLINDAMYCIN HC300 MG PO; +DOXEPIN HCL150 MG PO; +KEFLEX500 MG PO; +LORAZEPAM1 MG PO; +NORCO 7.5-3251 EACH PO; +SUBOXONE 8 MG-1 EAC1 SL
--- OUTSIDE RECORDS SUMMARY | 2019-09-23 09:56 | XMS ---
PreManage Notification: HALEY SHEPPARD Security Communications Professional Events No recent Security Events currently on file CRITERIA MET - [facility] - [facility] - 2 Visits in 30 Days CARE PROVIDERS ANA BURKETT Clinical Nurse Specialist: Family Health Current PHONE: [phone] [place] [place] Physician 08/15/2019-Current PHONE: [phone] Joie has no Care Guidelines for this patient. EJade VISIT COUNT (12 MO.) [facility] Omayra Díaz[address] TOTAL 9 NOTE: Visits indicate total known visits. ED/UCC VISIT TRACKING (12 MO.) 09/23/2019 09:53 [facility] [place] TYPE: Emergency COMPLAINT: - BLADDER ISSUE 09/13/2019 16:18 [facility] [place] TYPE: Emergency COMPLAINT: - R FOOT INFECTION 08/12/2019 22:56 [facility] [place] TYPE: Emergency COMPLAINT: - FLANK PAIN DIAGNOSES: - Type 2 diabetes mellitus without complications - Other extermination inspector (current) drug therapy - Unspecified abdominal pain - Hematuria, unspecified 08/01/2019 10:38 [facility] [place] TYPE: Emergency COMPLAINT: - THUMB INJURY DIAGNOSES: - Nicotine dependence, unspecified, uncomplicated - Type 2 diabetes mellitus without complications - Exposure to other specified factors, initial encounter - Other extermination inspector (current) drug therapy - Puncture wound without foreign body of left thumb with damage 04/07/2019 13:37 [facility] [place] TYPE: Emergency COMPLAINT: - KNEE PAIN, INJ DIAGNOSES: - Other custodial (current) drug therapy - Nicotine dependence, unspecified, uncomplicated - Type 2 diabetes mellitus without complications - Allergy status to other drugs, medicaments and biological sub - Sprain of unspecified site of right knee, initial encounter - terminal gauger (current) use of insulin - Other and unspecified overexertion or strenuous movements or 03/26/2019 13:17 [facility] [place] TYPE: Emergency COMPLAINT: - PRESSURE IN LEFT EYE DIAGNOSES: - terminal gauger (current) use of opiate analgesic - Systemic lupus erythematosus, unspecified - Other extermination inspector (current) drug therapy - Type 2 diabetes mellitus without complications - Ocular pain, left eye - Allergy status to other drugs, medicaments and biological sub - residential (current) use of insulin - Nicotine dependence, unspecified, uncomplicated 01/24/2019 16:47 [facility] OR [facility] TYPE: Emergency DIAGNOSES: 0. R KNEE SWELLING SP SURGERY 12/25/2018 19:47 [facility] OR [facility] TYPE: Emergency DIAGNOSES: 0. POST OP SENT BY 11/28/2018 12:36 [facility] OR [facility] TYPE: Emergency DIAGNOSES: 0. SURGERY SIGHT HAS BLISTERS AND PRESSURE INPATIENT VISIT TRACKING (12 MO.) 09/13/2019 16:19 [facility] [place] TYPE: Observation COMPLAINT: - CELLULITIS DIAGNOSES: - Type 2 diabetes mellitus without complications - Cellulitis of right lower limb - terminal gauger (current) use of insulin - Personal history of nicotine dependence - Tachycardia, unspecified - Pain in right ankle and joints of right foot - Other custodial (current) drug therapy - Allergy status to other drugs, medicaments and biological sub 01/19/2019 21:36 [facility] DIAGNOSES: 0. SEVERE SEPSIS WITHOUT SEPTIC SHOCK, PROBABLE RIGHT [email or web address]
--- NOTE | 2019-09-24 12:26 | EKG ---
[facility] [address] [place], [place] [address] Signed Normal sinus rhythm Normal ECG No previous ECGs available Confirmed by EFE BORRERO DO ([id number]) on 09/24/2019 12:26:02 PM Electronically Signed By: EFE BORRERO DO 09/24/19 1226 PATIENT NAME: SILVERHALEYTARAN KAMARA Electrocardiogram DATE OF : 73 PHYSICIAN: EFE BORRERO DO REPORT #: [id number] REPORT IS CONFIDENTIAL AND NOT TO BE RELEASED WITHOUT AUTHORIZATION
== END 2019-09-23 14:35 | disposition home or self-care (01) ==
LOC: ED 09:53
DX: E11.65 Type 2 diabetes mellitus with hyperglycemia (principal); Z87.891 Personal history of nicotine dependence; Z79.899 Other long term (current) drug therapy; Z79.4 Long term (current) use of insulin; Z88.8 Allergy status to other drugs, medicaments and biological substances
CPT/HCPCS: 80048; 80053; 81001; 82010; 82803; 85025; 93005; 93010; 96361; 96374; 96375; 99285-25; J1200; J1815; J2405; J7121

== ENCOUNTER 2020-06-07 15:53 | Emergency (ER) | payer OTHER ==
[~2020-06-07] VITALS: Ht 182.9 cm; Wt 93.4 kg
--- OUTSIDE RECORDS SUMMARY | 2020-06-07 15:56 | XMS ---
PreManage Notification: HALEY SHEPPARD Security Architect Internship Events No recent Security Events currently on file CRITERIA MET - [facility] CARE PROVIDERS ANA BURKETT Clinical Nurse Specialist: Family Health Current PHONE: [phone] [place] Physician Wheel Roller 09/26/2019-Current PHONE: [phone] Joie has no Care Guidelines for this patient. Care History Medical/Surgical 09/27/2019 [facility] - WRONG PHONE NUMBER Please update patient phone number when seen. CHW needs to contact patient E.D. VISIT COUNT (12 MO.) [address] [place] [address] TOTAL 5 NOTE: Visits indicate total known visits. ED/UCC VISIT TRACKING (12 MO.) 06/07/2020 15:54 [facility] [place] TYPE: Emergency COMPLAINT: - PRESSURE IN EYES 09/23/2019 09:53 [facility] [place] TYPE: Emergency COMPLAINT: - BLADDER ISSUE DIAGNOSES: - Personal history of nicotine dependence - Type 2 diabetes mellitus with hyperglycemia - Allergy status to other drugs, medicaments and biological substances - Other long line teamster (current) drug therapy - Type 2 diabetes mellitus with hyperglycemia - nursing home (current) use of insulin 09/13/2019 16:18 [facility] [place] TYPE: Emergency COMPLAINT: - R FOOT INFECTION 08/12/2019 22:56 [facility] [place] [facility] TYPE: Emergency COMPLAINT: - FLANK PAIN DIAGNOSES: - Type 2 diabetes mellitus without complications - Other long-term (current) drug therapy - Unspecified abdominal pain - Hematuria, unspecified 08/01/2019 10:[address] [facility] [place] TYPE: Emergency COMPLAINT: - THUMB INJURY DIAGNOSES: - Nicotine dependence, unspecified, uncomplicated - Type 2 diabetes mellitus without complications - Exposure to other specified factors, initial encounter - Other long-term (current) drug therapy - Puncture wound without foreign body of left thumb with damage to nail, initial encounter INPATIENT VISIT TRACKING (12 MO.) 09/13/2019 16:19 [facility] [place] TYPE: Observation COMPLAINT: - CELLULITIS DIAGNOSES: - Encounter for screening for other viral diseases - Type 2 diabetes mellitus without complications - Cellulitis of right lower limb - nursing home (current) use of insulin - Personal history of nicotine dependence - Tachycardia, unspecified - Pain in right ankle and joints of right foot - Other long-term (current) drug therapy - Allergy status to other drugs, medicaments and biological substances [email or web address]
--- NOTE | 2020-06-08 15:52 | EKG ---
[facility] [address] [place] [address] Signed Sinus tachycardia Pulmonary disease pattern Left anterior fascicular block Abnormal ECG When compared with ECG of 23-SEP-2019 10:13, Vent. rate has increased BY 40 BPM T wave amplitude has decreased in Lateral leads Confirmed by EFE BORRERO DO ([id number]) on 06/08/2020 3:52:20 PM Electronically Signed By: EFE BORRERO DO 06/08/20 1552 PATIENT NAME: SILVERHALEY Electrocardiogram DATE OF : 73 PHYSICIAN: EFE BORRERO DO REPORT #: [id number] REPORT IS CONFIDENTIAL AND NOT TO BE RELEASED WITHOUT AUTHORIZATION
== END 2020-06-07 18:50 | disposition home or self-care (01) ==
LOC: ED 15:53
DX: E11.65 Type 2 diabetes mellitus with hyperglycemia (principal); E86.0 Dehydration; Z87.891 Personal history of nicotine dependence; Z88.8 Allergy status to other drugs, medicaments and biological substances; Z79.899 Other long term (current) drug therapy; Z79.4 Long term (current) use of insulin
CPT/HCPCS: 70450; 71045; 80053; 81001; 82010; 82803; 83735; 84484; 85025; 85379; 85610; 93005; 93010; 99284-25; J7030

== ENCOUNTER 2021-01-09 14:42 | Emergency (ER) | payer OTHER ==
[~2021-01-09] VITALS: Ht 182.9 cm; Wt 87.1 kg
[2021-01-09] MEDS ORDERED: NOVOLOG FL100 UNIT/1 SUB-Q (17:30)
[2021-01-09] MEDS ORDERED: VICTOZA 2-0.6 MG/0.1 SUB-Q (17:30)
== END 2021-01-09 18:13 | disposition home or self-care (01) ==
LOC: ED 14:42
DX: E11.65 Type 2 diabetes mellitus with hyperglycemia (principal); F17.200 Nicotine dependence, unspecified, uncomplicated; Z88.8 Allergy status to other drugs, medicaments and biological substances; Z79.899 Other long term (current) drug therapy; Z79.4 Long term (current) use of insulin
CPT/HCPCS: 71045; 80053; 81001; 82010; 82803; 83690; 83735; 85025; 96374; 99285-25; J1815; J7030

== ENCOUNTER 2021-01-19 20:34 | Emergency (ER) | payer OTHER ==
[~2021-01-19] VITALS: Ht 182.9 cm; Wt 87.1 kg
--- OUTSIDE RECORDS SUMMARY | 2021-01-19 20:36 | XMS ---
PreManage Notification: HALEY SHEPPARD Security C Winforms Developer Events No recent Security Events currently on file CRITERIA MET - [facility] - 2 Visits in 30 Days - [facility] CARE PROVIDERS ANA BURKETT Clinical Nurse Specialist: Family Health Current PHONE: [phone] [place] Physician Ship'S Pilot 09/26/2019-Current PHONE: [phone] Joie has no Care Guidelines for this patient. Care History Medical/Surgical 09/27/2019 [facility] - WRONG PHONE NUMBER Please update patient phone number when seen. CHW needs to contact patient E.D. VISIT COUNT (12 MO.) 3 [facility] HJono TOTAL 3 NOTE: Visits indicate total known visits. ED/UCC VISIT TRACKING (12 MO.) 01/19/2021 20:34 [facility] TYPE: Emergency COMPLAINT: - swollen left elbow 01/09/2021 14:42 [facility] [place] TYPE: Emergency COMPLAINT: - BLOOD SUGAR PROBLEM, HIGH HEART RATE DIAGNOSES: - termination clerk (current) use of insulin - Other shelter (current) drug therapy - Nausea with vomiting, unspecified - Type 2 diabetes mellitus with hyperglycemia - Nicotine dependence, unspecified, uncomplicated - Allergy status to other drugs, medicaments and biological substances 06/07/2020 15:[address] [facility] [place] TYPE: Emergency COMPLAINT: - EYE PROBLEM DIAGNOSES: - Personal history of nicotine dependence - Other buttermaker (current) drug therapy - Allergy status to other drugs, medicaments and biological substances - Type 2 diabetes mellitus with hyperglycemia - Dehydration - nursing home (current) use of insulin INPATIENT VISIT TRACKING (12 MO.) No inpatient visits to display in this time frame [email or web address]
[2021-01-19] MEDS ORDERED: CELEBREX200 MG PO (21:24)
== END 2021-01-19 21:44 | disposition home or self-care (01) ==
LOC: ED 20:34
DX: M70.22 Olecranon bursitis, left elbow (principal); E11.9 Type 2 diabetes mellitus without complications; F17.200 Nicotine dependence, unspecified, uncomplicated; Z88.8 Allergy status to other drugs, medicaments and biological substances; Z79.4 Long term (current) use of insulin; Z79.899 Other long term (current) drug therapy
CPT/HCPCS: 73080; 99283-25

== ENCOUNTER 2021-03-21 20:18 | Emergency (ER) | payer OTHER ==
[~2021-03-21] VITALS: Ht 182.9 cm; Wt 97.2 kg
[~2021-03-21 20:18] MED LIST changes: +CELEBREX200 MG PO
--- OUTSIDE RECORDS SUMMARY | 2021-03-21 20:20 | XMS ---
PreManage Notification: HALEY SHEPPARD Security Bobbin Cleaner Hand Events 1 event(s) in the past 18 months Most recent security events: Elopement at [facility] 02/26/2021 11:14 - Other Details: PATIENT LWBS CRITERIA MET - [facility] - [facility] - 2 Visits in 30 Days CARE PROVIDERS [place] Physician Hydrogen Power Plant Engineer 09/26/2019-Current PHONE: [phone] Joie has no Care Guidelines for this patient. Care History Medical/Surgical 09/27/2019 [facility] - WRONG PHONE NUMBER Please update patient phone number when seen. CHW needs to contact patient E.D. VISIT COUNT (12 MO.) 5 [facility]. TOTAL 5 NOTE: Visits indicate total known visits. ED/UCC VISIT TRACKING (12 MO.) 03/21/2021 20:18 [facility] [place] TYPE: Emergency COMPLAINT: - HIGH BLOOD SUGAR 02/26/2021 11:14 [facility] [place] TYPE: Emergency COMPLAINT: - WEAKNESS IN LEGS, BACK PAIN 01/19/2021 20:34 [facility] [place] TYPE: Emergency COMPLAINT: - swollen left elbow DIAGNOSES: - Pain in left elbow - [facility] (current) use of insulin - Nicotine dependence, unspecified, uncomplicated - Other terminologist (current) drug therapy - Olecranon bursitis, left elbow - Allergy status to other drugs, medicaments and biological substances - Type 2 diabetes mellitus without complications 01/09/2021 14:42 [facility] [place] TYPE: Emergency COMPLAINT: - BLOOD SUGAR PROBLEM, HIGH HEART RATE DIAGNOSES: - [facility] (current) use of insulin - Other terminologist (current) drug therapy - Nausea with vomiting, unspecified - Type 2 diabetes mellitus with hyperglycemia - Nicotine dependence, unspecified, uncomplicated - Allergy status to other drugs, medicaments and biological substances 06/07/2020 15:54 [facility] [place] TYPE: Emergency COMPLAINT: - EYE PROBLEM DIAGNOSES: - Personal history of nicotine dependence - Other terminologist (current) drug therapy - Allergy status to other drugs, medicaments and biological substances - Type 2 diabetes mellitus with hyperglycemia - Dehydration - terminologist (current) use of insulin INPATIENT VISIT TRACKING (12 MO.) No inpatient visits to display in this time frame [email or web address]
[2021-03-21] MEDS ORDERED: NOVOLOG FL100 UNIT/1 SUB-Q (23:16)
[2021-03-21] MEDS ORDERED: BASAGLAR K100 UNIT/1 SUB-Q (23:16)
[2021-03-21] MEDS ORDERED: CEPHALEXIN500 MG PO (23:17)
== END 2021-03-21 23:38 | disposition home or self-care (01) ==
LOC: ED 20:18
DX: E11.65 Type 2 diabetes mellitus with hyperglycemia (principal); N39.0 Urinary tract infection, site not specified; Z91.19 Patient's noncompliance with other medical treatment and regimen; E11.9 Type 2 diabetes mellitus without complications; F17.200 Nicotine dependence, unspecified, uncomplicated; Z88.8 Allergy status to other drugs, medicaments and biological substances; Z79.899 Other long term (current) drug therapy
CPT/HCPCS: 80053; 81001; 82010; 82800; 85007; 85025; 87088; 96374; 99284-25; J1815; J7030

== ENCOUNTER 2021-06-25 17:15 | Emergency (ER) | payer OTHER ==
[~2021-06-25] VITALS: Ht 182.9 cm; Wt 97.2 kg
[~2021-06-25 17:15] MED LIST changes: +CEPHALEXIN500 MG PO
--- OUTSIDE RECORDS SUMMARY | 2021-06-25 17:18 | XMS ---
PreManage Notification: HALEY SHEPPARD Security Assembler Knife Events 1 event(s) in the past 18 months Most recent security events: Elopement at [facility] 02/26/2021 11:14 - Other Details: PATIENT LWBS CRITERIA MET - [facility] CARE PROVIDERS [place] Physician Assembler Clip On Sunglasses 09/26/2019-Current PHONE: [phone] WENDY RAMEY Physician Assembler Clip On Sunglasses 03/25/2021-Current PHONE: [phone] Joie has no Care Guidelines for this patient. Care History Medical/Surgical 09/27/2019 [facility] - WRONG PHONE NUMBER Please update patient phone number when seen. CHW needs to contact patient E.D. VISIT COUNT (12 MO.) [address] [facility] [facility] TOTAL 5 NOTE: Visits indicate total known visits. ED/UCC VISIT TRACKING (12 MO.) 06/25/2021 17:16 [facility] [place] TYPE: Emergency COMPLAINT: - BLOOD SUGAR PROBLEM 03/21/2021 20:18 [facility] [place] TYPE: Emergency COMPLAINT: - HIGH BLOOD SUGAR DIAGNOSES: - Urinary tract infection, site not specified - Type 2 diabetes mellitus with hyperglycemia - Type 2 diabetes mellitus without complications - Patient's noncompliance with other medical treatment and regimen - Allergy status to other drugs, medicaments and biological substances - Other termite exterminator (current) drug therapy - Nicotine dependence, unspecified, uncomplicated 02/26/2021 11:14 [facility] [place] TYPE: Emergency COMPLAINT: - WEAKNESS IN LEGS, BACK PAIN 01/19/2021 20:34 [facility] [place] TYPE: Emergency COMPLAINT: - swollen left elbow DIAGNOSES: - Pain in left elbow - snf (current) use of insulin - Nicotine dependence, unspecified, uncomplicated - Other termite exterminator (current) drug therapy - Olecranon bursitis, left elbow - Allergy status to other drugs, medicaments and biological substances - Type 2 diabetes mellitus without complications 01/09/2021 14:42 [facility] [place] TYPE: Emergency COMPLAINT: - BLOOD SUGAR PROBLEM, HIGH HEART RATE DIAGNOSES: - snf (current) use of insulin - Other skilled nursing (current) drug therapy - Nausea with vomiting, unspecified - Type 2 diabetes mellitus with hyperglycemia - Nicotine dependence, unspecified, uncomplicated - Allergy status to other drugs, medicaments and biological substances INPATIENT VISIT TRACKING (12 MO.) No inpatient visits to display in this time frame [email or web address]
[2021-06-25] MEDS ORDERED: METHADONE HCL40 MG PO (17:55)
[2021-06-25] MEDS ORDERED: INSULIN AS100 UNIT/3 SUB-Q ×2 (18:32→18:36)
[2021-06-25] MEDS ORDERED: BASAGLAR K100 UNIT/1 SUB-Q (18:36)
[2021-06-25] MEDS ORDERED: METOPROLOL SUC100 MG PO (18:37)
== END 2021-06-25 19:50 | disposition home or self-care (01) ==
LOC: ED 17:15
DX: E11.65 Type 2 diabetes mellitus with hyperglycemia (principal); E11.9 Type 2 diabetes mellitus without complications; F17.200 Nicotine dependence, unspecified, uncomplicated; Z88.8 Allergy status to other drugs, medicaments and biological substances; Z79.4 Long term (current) use of insulin; Z79.899 Other long term (current) drug therapy
CPT/HCPCS: 80053; 81001; 85025; 96374; 99283-25; A9270; J1815; J2405; J7030